=== PATIENT | female | born 1965 | race Caucasian/White ===

== ENCOUNTER 2018-11-04 10:05 | Outpatient (CLI) | payer MEDICARE, MEDICAID ==
[2018-11-04] VITALS (22 sets, daily range): BP systolic 86–134; BP diastolic 62–90
== END 2018-11-04 23:59 | disposition home or self-care (01) ==
LOC: CARD DIAG 10:05
PROVIDERS: ATTEND Internal Medicine Cardiovascular Disease
DX: R42 Dizziness and giddiness (principal); J45.909 Unspecified asthma, uncomplicated; Z87.891 Personal history of nicotine dependence; Z90.710 Acquired absence of both cervix and uterus
CPT/HCPCS: 93660